=== PATIENT | female | born 1940 | race Caucasian/White ===

== ENCOUNTER → 2016-10-04 15:38 | Outpatient (CLI) | payer MEDICARE, BC | END | disposition home or self-care (01) | LOC: D.MAMMO 09:00 | DX: Z12.31 Encounter for screening mammogram for malignant neoplasm of breast (principal) ==

== ENCOUNTER → 2017-02-21 11:04 | Outpatient (CLI) | payer MEDICARE, BC | END | disposition home or self-care (01) | LOC: D.CT 11:04 | DX: M54.5 Low back pain (principal) ==

== ENCOUNTER → 2020-01-11 08:34 | Outpatient (CLI) | payer MEDICARE, BC | END | disposition home or self-care (01) | LOC: D.US 08:30 | PROVIDERS: ATTEND Thoracic Surgery (Cardiothoracic Vascular Surgery) | DX: I71.4 Abdominal aortic aneurysm, without rupture (principal) ==